=== PATIENT | female | born 1950 | race Caucasian/White ===

== ENCOUNTER 2017-01-07 17:06 | Inpatient (IN) | payer MEDICARE ==
[~2017-01-07] VITALS: Ht 162.6 cm; Wt 89.6 kg
[~2017-01-07 17:06] MED LIST: BISAC-EVAC10 MG PR; CELEXA20 MG PO; DELTASONE DPS20 MG PO; DUONEB DPS3 ML IH; INDERAL LA60 MG PO; LOMOTIL-DPS1 TAB PO; MIRALAX17 GM PO; MYLANTA PO; NEPHRO-VITE1 TAB PO; NITROSTAT0.4 MG SL; OMNICEF DPS300 MG PO; PEPCID DPS20 MG PO; PEPCID20 MG PO; PHOS-LO667 MG PO; PRO-STAT AWC LI30 ML PO; PROTONIX40 MG PO; RENAGEL800 MG PO; RENVELA800 MG PO; ROBITUSSIN100 MG/5 M PO; RULOX PO; SENSIPAR30 MG PO; SENSIPAR90 MG PO; SPIRIVA18 MCG IH; SURFAK240 MG PO; TYLENOL DPS325 MG PO; TYLENOL EXTRA500 M1 PO; XANAX DPS0.5 MG PO; ZOFRAN4 M1 PO
--- NOTE | 2017-01-08 10:30 | CO ---
ADMIT: 01/07/2017 RM/LOC: 307 [facility] MR#: [id number] [address] [place], [place] [address] CRIS [address] [address] Consultation SEX: F AGE: 66 : 1950 DATE OF CONSULTATION: 01/07/2017 ATTENDING PHYSICIAN: Warren Baez CONSULTING PHYSICIAN: Gato Reed MD REASON FOR CONSULTATION: End-stage renal disease, on hemodialysis, hyperkalemia. HISTORY OF PRESENT ILLNESS: The patient is a 66-year-old female, who is well known to me. She typically dialyzes on a Ciuinc-Esqglboli-Xorpxs schedule. Her last dialysis was this past Sunday. She has been unwell for approximately 2-3 weeks now. Has been having a productive cough with some shortness of breath. We had treated her as an outpatient with Levaquin and oral steroids for her COPD exacerbation. Her expectoration did decrease somewhat, but earlier today, she had sudden onset of shortness of breath, for which she presented to the emergency room. She was being treated for her COPD exacerbation and was noted to have a potassium of 7.6. She denies any dietary potassium indiscretion. She is adamant she did not have any high potassium food such as potatoes, tomatoes, or strawberries or fruits, etc. Other than the shortness of breath, she notes some tingling in her feet. She denies any orthopnea or PND. She is currently on 2 L nasal cannula for supplemental oxygen. She has no other complaints. REVIEW OF SYSTEMS: A complete review of systems is negative in detail except as mentioned in the history of present illness above. PAST MEDICAL HISTORY: 1. Hypertension. 2. 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 Her dialysis schedule is Knrlpk-Qkhtlhtml-Zbrirq. Access right upper arm AV fistula. 3. COPD. 4. Hysterectomy. 5. Cholecystectomy. 6. Peptic ulcer disease. 7. Chronic headaches. 8. Anemia of chronic kidney disease. 9. Staph epi bacteremia associated with the catheter in 2011. 10.Noncardiac chest pain previously. 11.Renal insufficiency secondary to prednisone therapy. 12.Pulmonary embolism in 2011. 13.Anxiety disorder. 14.Right arm AV fistula in January 2013. MEDICATIONS: Reading her home medication list, she is on no antihypertensives at home. She was taking Levaquin as an outpatient along with prednisone that she recently finished. ADMIT: 01/07/2017 RM/LOC: 307 [facility] MR#: [id number] [address] [address] [place] [address] Consultation SEX: F AGE: 66 : 1950 FAMILY HISTORY: No family history of chronic kidney disease or renal replacement therapy. SOCIAL HISTORY: Quit smoking in the year 2011. Denies any alcohol or recreational drug use. ALLERGIES: ASPIRIN, PENICILLINS. PHYSICAL EXAMINATION: VITAL SIGNS: Blood pressure 168/85, heart rate 84, saturating 95% on 2 L nasal cannula. GENERAL: She is in bed, somewhat tachypneic. HEENT: Head is nontraumatic and normocephalic. Extraocular movements are intact. No conjunctival pallor. Oral mucosa is moist. NECK: Supple without any JVD. CHEST: With expiratory wheezes. CVS: Regular rhythm. S1, S2 heard. No rubs, murmurs, or gallops. ABDOMEN: Soft, nontender. EXTREMITIES: No edema. SKIN: No rash or nodules. NEUROLOGIC: Alert, awake, and oriented x3. She is able to move all extremities. PSYCHIATRIC: Affect and memory within normal limits. MUSCULOSKELETAL: Major joints within normal limits. Range of motion within normal limits. Line access right upper arm AV fistula, good thrill and bruit. LABORATORY DATA: Reviewed. BMP with sodium 132, potassium 7.6, CO2 is 23, creatinine 10.4, hemoglobin is 12.8, white count 16.2. IMAGING: Chest x-ray without any pulmonary edema or infiltrates. ASSESSMENT: 1. End-stage renal disease, on hemodialysis. 2. Chronic obstructive pulmonary disease exacerbation. 3. Hyperkalemia. 4. Hypertension/volume expansion. ADMIT: 01/07/2017 RM/LOC: 307 [facility] MR#: [id number] [address] [address] [address] [place] [address] Consultation SEX: F AGE: 66 : 1950 5. Hyponatremia. PLAN: I will provide her urgent hemodialysis tonight. I will dialyze her on a 2K bath. Her hyperkalemia and her volume expanded state necessitates dialysis. For her chronic obstructive pulmonary disease exacerbation, she will be treated with doxycycline and DuoNeb for the time being. She will be on telemetry for hyperkalemia as well. She will likely need renal replacement therapy tomorrow too. Thank you for this consultation and allowing me the opportunity to participate in this patient's care. Please do not hesitate to contact with any questions. Gato Reed MD/ rosendo JOB #: [id number] CC: Warren Baez, Attending Physician Warren Baez, Family Physician
--- NOTE | 2017-01-08 13:01 | ER ---
ADMIT: 01/07/2017 RM/LOC: 307 [facility] MR#: [id number] [address] [place], [place] [address] CRIS [address] [address] Emergency Room Report SEX: F AGE: 66 : 1950 DATE: 01/07/2017 The patient is a 66-year-old female with a past medical history of hypertension; COPD; end-stage kidney disease, on dialysis on Sunday, Sunday, and Sunday who had dialysis on the last Sunday, 2 days ago, came to the ER with chief complaint of increased shortness of breath. The patient recently has been hospitalized for COPD exacerbation and hyperkalemia and after counting the medications prednisone and levofloxacin pills and talking to the family, it looks like the patient is not compliant with her medications. The patient denies any chest pain. In the ER, the patient had O2 saturation of 92% at room air, which increased to 94% on minimal 1 to 2 L of nasal cannula O2 oxygen. EKG did not show any ST or T changes and did not show any arrhythmia, is normal sinus rhythm. Cardiac enzymes are pending. The patient had bilateral wheezing. The patient received Solu-Medrol IVs 125 mg in the ER. The patient was started on DuoNeb and albuterol nebulizer. Physical exam did not show any other abnormalities. Followup lab works were positive for hyperkalemia at 7.6, severe hyperkalemia. The patient received calcium gluconate 10 mL IV or more than 5 minutes. The patient also received multiple albuterol nebulizer and received 1 vial 50 mL of dextrose 50% with 5 units of regular insulin IV. Internal Medicine, Dr. Soto, and Nephrology, Dr. Reed were consulted. The patient was admitted for further followups and treatments of COPD exacerbation, hyperkalemia. Milli Miller MD/ rosendo JOB #: [id number] CC: Warren Baez DO, Attending Physician Warren Baez DO, Family Physician
[2017-01-11] MEDS ORDERED: PHOS-LO667 MG PO (13:18)
[2017-01-11] MEDS ORDERED: PRILOSEC DPS20 MG PO (13:19)
[2017-01-11] MEDS ORDERED: XANAX DPS0.5 MG PO (13:20)
[2017-01-11] MEDS ORDERED: HABITROL DPS21 MG TD (13:21)
[2017-01-11] MEDS ORDERED: ZITHROMAX250 MG PO (13:22)
[2017-01-11] MEDS ORDERED: ROBITUSSIN AC D30 ML PO (13:23)
[2017-02-15] MEDS ORDERED: SURFAK DPS240 MG PO (13:08)
[2017-02-15] MEDS ORDERED: SENSIPAR90 MG PO (13:08)
[2017-02-15] MEDS ORDERED: TYLENOL DPS325 MG PO (13:09)
[2017-02-15] MEDS ORDERED: NITROSTAT0.4 MG SL (13:09)
--- NOTE | 2017-02-28 08:23 | DS ---
ADMIT: 01/07/2017 RM/LOC: 307 [facility] MR#: [id number] 2620 [facility] [address] [place], [place] [address] CRIS MANCILLA [address] [address] Discharge Summary SEX: F AGE: 66 : 1950 ADMISSION DATE: 01/07/2017 DISCHARGE DATE: 01/10/2017 HISTORY OF PRESENT ILLNESS: The patient was admitted and received her initial assessment and care plan per Dr. Soto. Please refer to her orders and admission history and physical. In short, she was felt to have exacerbation of COPD. She has end-stage renal disease, and Dr. Reed was consulted. He provided her ongoing dialysis services. The patient received IV steroids, IV antibiotics, nebulized treatments. She admitted that she was since returning home to the care of her family, she had restarted her smoking habit. We discussed this in detail and she was agreeable to smoking cessation. On 01/09, we switched her from IV Solu-Medrol to oral prednisone after noting she had improved lung sounds and was reporting that she was better. By 01/10, she had resolved her exacerbation of COPD. We had discussed smoking cessation and decided to dismiss her with plans to return to see me in 2 weeks. She was to stay on doxycycline 100 mg p.o. b.i.d. for 1 week and then have a tapering course of prednisone 20 mg daily for 5 days, 10 mg daily for 5 days, and stop. She was to receive her routine follow up through the outpatient dialysis clinic and monitoring per Dr. Reed. FINAL DIAGNOSES: 1. Acute exacerbation Chronic obstructive pulmonary disease. 2. End-stage renal disease. 3. Hypertension. 4. Hyperkalemia. Warren Baez DO/ modl JOB #: [id number] CC: Warren Baez DO, Attending Physician Warren Baez DO, Family Physician
== END 2017-01-10 16:10 | disposition home or self-care (01) | DRG 190 ==
LOC: ER 17:06 → 3ICU 18:45
PROVIDERS: ADMIT Internal Medicine Nephrology
PROC: 5A1D60Z (ICD-10-PCS; principal; 2017-01-07)
DX: J44.1 Chronic obstructive pulmonary disease with (acute) exacerbation (principal); N18.6 End stage renal disease; I12.0 Hypertensive chronic kidney disease with stage 5 chronic kidney disease or end stage renal disease; E87.1 Hypo-osmolality and hyponatremia; E87.5 Hyperkalemia; F41.9 Anxiety disorder, unspecified; D63.1 Anemia in chronic kidney disease; Z99.2 Dependence on renal dialysis; Z91.14 Patient's other noncompliance with medication regimen; Z86.711 Personal history of pulmonary embolism; Z87.891 Personal history of nicotine dependence; Z87.11 Personal history of peptic ulcer disease; Z66 Do not resuscitate

== ENCOUNTER 2017-02-08 14:51 | Emergency (ER) | payer MEDICARE ==
[~2017-02-08 14:51] MED LIST changes: +HABITROL DPS21 MG TD; +PRILOSEC DPS20 MG PO; +ROBITUSSIN AC D30 ML PO; +ZITHROMAX250 MG PO
[2017-02-15] MEDS ORDERED: SENSIPAR90 MG PO (13:08)
[2017-02-15] MEDS ORDERED: SURFAK DPS240 MG PO (13:08)
[2017-02-15] MEDS ORDERED: TYLENOL DPS325 MG PO (13:09)
[2017-02-15] MEDS ORDERED: NITROSTAT0.4 MG SL (13:09)
--- NOTE | 2017-02-17 06:57 | ER ---
ADMIT: 02/08/2017 RM/LOC: ER [facility] MR#: [id number] [address] [place], [place] [address] CRIS MANCILLA [address] [address] Emergency Room Report SEX: F AGE: 66 : 1950 DATE: 02/08/2017 See T-sheet for complete H and P, ADDENDUM: A 66-year-old female presents complaining of right upper extremity pain that extends into her axilla and just the anterior part of her right chest. She does have a fistula on this side for end-stage renal disease, and she has been using that fistula for over 4 years. She does get dialysis on Sunday, Sunday, and Sunday. Last dialysis was yesterday morning. She developed some pain approximately 12 hours after dialysis was done in that right upper arm and she thinks that she has a little bit of bruising there. It is quite tender to palpation. She denies any new shortness of breath. No difficulty breathing. There is some tenderness when she moves that right arm. She has not had any recent falls. She denies fevers, chills, nausea, or vomiting. On examination, she has some tenderness in this area. Fistula has a good bruit. I see no swelling, no signs of erythema or infection. I did get an ultrasound which is negative for DVT and the basilic vein fistula appears patent. There is no swelling or gas seen on the ultrasound. The patient was given Ultram here, discharged home to follow up tomorrow in dialysis and she is told she can return for any other concerning symptoms. DIAGNOSIS: Right arm pain. Tae Gamble MD/ rosendo JOB #: [id number] CC: Tae Gamble MD, Attending Physician
== END 2017-02-08 16:59 | disposition home or self-care (01) ==
LOC: ER 14:51
DX: M79.601 Pain in right arm (principal); Z88.0 Allergy status to penicillin; Z88.8 Allergy status to other drugs, medicaments and biological substances; Z87.891 Personal history of nicotine dependence

== ENCOUNTER 2017-02-09 11:46 | Emergency (ER) | payer MEDICARE ==
--- NOTE | 2017-02-10 08:22 | ER ---
ADMIT: 02/09/2017 RM/LOC: ER [facility] MR#: [id number] [address] [place], [place] [address] CRIS [address] [address] Emergency Room Report SEX: F AGE: 66 : 1950 DATE: 02/09/2017 A 66-year-old female, comes again to the Emergency Department with complaints of right-sided chest pain. Please note, she changed her complaints much later in the ER visit to the same pain she was having last night, she says it is in the posterior aspect of the right arm, radiates into the right side of the chest with movement of the arm. Her CBC showed a white count of 12.3. Chest x-ray was unremarkable. Electrolytes pending at the time of this dictation. The patient did dialyze today. Her diagnosis is arm pain. She was given fentanyl in the Emergency Department. Instructed to continue to use her Ultram that was prescribed yesterday and a heating pad to the area. Follow up this week with her doctor. Tejas Tamayo MD/ rosendo JOB #: [id number] CC: Tejas Tamayo MD, Attending Physician Ashwin Elizondo MD, Family Physician
[2017-02-15] MEDS ORDERED: SURFAK DPS240 MG PO (13:08)
[2017-02-15] MEDS ORDERED: SENSIPAR90 MG PO (13:08)
[2017-02-15] MEDS ORDERED: TYLENOL DPS325 MG PO (13:09)
[2017-02-15] MEDS ORDERED: NITROSTAT0.4 MG SL (13:09)
== END 2017-02-09 15:11 | disposition home or self-care (01) ==
LOC: ER 11:46
DX: M79.601 Pain in right arm (principal); R07.9 Chest pain, unspecified; Z88.0 Allergy status to penicillin; Z88.6 Allergy status to analgesic agent; Z87.891 Personal history of nicotine dependence; Z90.710 Acquired absence of both cervix and uterus; Z90.89 Acquired absence of other organs

== ENCOUNTER 2017-02-11 18:15 | Inpatient (IN) | payer MEDICARE ==
[~2017-02-11] VITALS: Ht 162.6 cm; Wt 90.6 kg
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
[2017-02-15] MEDS ORDERED: SENSIPAR90 MG PO (13:08)
[2017-02-15] MEDS ORDERED: SURFAK DPS240 MG PO (13:08)
[2017-02-15] MEDS ORDERED: NITROSTAT0.4 MG SL (13:09)
[2017-02-15] MEDS ORDERED: TYLENOL DPS325 MG PO (13:09)
--- NOTE | 2017-02-16 16:04 | CO ---
ADMIT: 02/11/2017 RM/LOC: 410 [facility] MR#: [id number] [address] [place], [place] [address] CRIS [address]LL[address] [address] Consultation SEX: F AGE: 66 : 1950 DATE OF CONSULTATION: 02/12/2017 ATTENDING PHYSICIAN: Warren Baez CONSULTING PHYSICIAN: Gato Reed MD REASON FOR CONSULTATION: End-stage renal disease, on hemodialysis. HISTORY OF PRESENT ILLNESS: The patient is a 66-year-old female, who dialyzes on a Ktyprt-Qsopnclas-Ayhxfr schedule. Last dialysis was this past Sunday. She presented to the hospital yesterday with chief complaint of shortness of breath, chest discomfort, chills, as well as anxiety. She was recently hospitalized for a COPD exacerbation. She had not been better, but continued to have a cough. Over the weekend, she felt worse. She started having a productive cough. She had subjective chills, but no documented fevers. She was admitted and evaluated through the ER. She is being treated for a COPD exacerbation. At the time of this encounter, she continues to have some dyspnea. Denies any orthopnea or PND. Denies any lower extremity edema. Denies any dietary sodium or fluid indiscretion. REVIEW OF SYSTEMS: A complete review of systems is negative in detail except as mentioned in history of present illness above. PAST MEDICAL HISTORY: 1. Hypertension. 2. 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 Dialysis scheduled as Sunday, Sunday, and Sunday. Access, right upper arm AV fistula. 3. COPD. 4. Hysterectomy. 5. Peptic ulcer disease. 6. Cholecystectomy. 7. Chronic headaches. 8. Anemia of chronic kidney disease. 9. Staph epidermidis bacteremia, associated with a catheter in the year 2011. 10.Noncardiac chest pain previously. 11.Adrenal insufficiency secondary to prednisone therapy. 12.Pulmonary embolism in 2011. 13.Anxiety disorder. 14.Right arm AV fistula in January of 2013. MEDICATIONS: Reviewed in the chart. FAMILY HISTORY: No family history of chronic kidney disease or renal replacement therapy. ADMIT: 02/11/2017 RM/LOC: 410 [facility] MR#: [id number] [address] [address] MANCILL[address] [place] [address] Consultation SEX: F AGE: 66 : 1950 SOCIAL HISTORY: She quit smoking in the year 2011. No ongoing tobacco, alcohol, or recreational drug use. ALLERGIES: ASPIRIN AND PENICILLIN. PHYSICAL EXAMINATION: VITAL SIGNS: Temperature 98 Fahrenheit, pulse 75, blood pressure 138/72. GENERAL: She is comfortable in her bed. HEENT: Head is nontraumatic and normocephalic. Extraocular movements are intact. No conjunctival pallor. Dry mucosa. NECK: Supple without any JVD. CHEST: Clear to auscultation. CVS: Regular rate and rhythm. S1, S2 heard. No rubs, murmurs, or gallops. ABDOMEN: Soft, nontender. EXTREMITIES: No edema. SKIN: No rash or nodules. NEUROLOGIC: Alert, awake, and oriented x3. She is able to move all her extremities. PSYCHIATRIC: She is somewhat anxious. ACCESS: Right upper arm AV fistula, with good thrill and bruit. LABORATORY DATA: Reviewed. BMP with sodium 134, potassium 4.9, CO2 of 24, creatinine 9.9, calcium 7.5, phosphorus 4.5. Hemoglobin is 11.3. ASSESSMENT AND PLAN: 1. End-stage renal disease, on hemodialysis - Plan to dialyze today. See orders in the chart. 2. Hypertension - Blood pressure is acceptable. I will provide her ultrafiltration as her hemodynamics allow. 3. Anemia in chronic kidney disease - Hemoglobin is at goal of 10 g/dL or higher. Continue to monitor. 4. Renal osteodystrophy - Continue Renvela and PhosLo as her phosphate binders. Serum phosphorus is within normal limit. Thank you for this consultation. Please do not hesitate to contact me with any questions. Gato Reed MD/ rosendo JOB #: [id number] CC: Warren Baez, Attending Physician Warren Baez, Family Physician
--- NOTE | 2017-02-28 08:23 | HP ---
ADMIT: 02/11/2017 RM/LOC: 410 MR#: [id number] 26[address] [facility] [address] [place], [place] [address] CRIS MANCILLA [address] [address] History and Physical SEX: F AGE: 66 : 1950 DATE OF SERVICE: 02/12/2017 REASON FOR HOSPITALIZATION: Chest discomfort, shaking, chills, and anxiety. HISTORY OF PRESENT ILLNESS: A 66-year-old female patient, who had sudden onset of chest discomfort, chills, and shaking and thought suspicious for early pneumonia and/or pulmonary embolism. At the time of presentation in the emergency room, it was noted by the staff that she was quite anxious. After further evaluation, there was no obvious pulmonary embolism or infiltrate on her CT scan of her chest, but she is admitted for possible early pneumonia and acute exacerbation of chronic obstructive pulmonary disease. PAST MEDICAL HISTORY: 1. She does have a history of COPD. 2. End-stage renal disease, on hemodialysis. 3. Hypertension. 4. Anemia. 5. Pulmonary embolism. 6. Peptic ulcer disease. 7. Anxiety. SOCIAL HISTORY: She reports that she has successfully quit smoking but "it is very hard." Those around her in her home continue to smoke. FAMILY HISTORY: Noncontributory. MEDICATIONS: Home medications are not yet listed in her record but will be reviewed. REVIEW OF SYSTEMS: The discomfort as reported above in her chest. No current nausea, vomiting, diarrhea, or bleeding. She does dialyze on Sunday, Sunday, and Sunday. PHYSICAL EXAMINATION: GENERAL: On examination, she is pleasant, currently pain free. She does have a cough. She is complaining of right axillary discomfort. She states she thinks she pulled some tendons in the axilla. She did have an ultrasound of this area performed about 4 or 5 days ago which was negative for clot. LUNGS: Otherwise, her lungs are revealing rhonchi especially in the left base. HEART: Regular. ADMIT: 02/11/2017 RM/LOC: 410 MR#: [id number] [id number] [place], [place] [address] CRIS MANCILLA [address] [place] [address] History and Physical SEX: F AGE: 66 : 1950 ABDOMEN: Soft. No peripheral edema. LABORATORY DATA: Her labs reveal negative CK-MB and troponins. CTA is negative for pulmonary embolism. IMPRESSION: 1. Acute exacerbation of chronic obstructive pulmonary disease. 2. Anxiety. 3. Right arm pain. PLAN: Admit, antibiotic therapy, nebulized treatments. Consult Dr. Reed and repeat ultrasound of the right upper extremity. Warren Baez DO/ modl JOB #: [id number] CC: Warren Baez, Attending Physician Warren Baez, Family Physician
--- NOTE | 2017-03-06 21:31 | ER ---
ADMIT: 02/11/2017 RM/LOC: ER [facility] MR#: [id number] [address] [place], [place] [address] CRIS [address]CILLA [address] [address] Emergency Room Report SEX: F AGE: 66 : 1950 DATE: 02/11/2017 This 66-year-old female with sudden onset of sharp chest pain, 9/10 while watching TV, but then shaking uncontrollably, back pain and leg pain. PAST HISTORY: Hypertension, dialysis-dependent renal failure, anxiety and was recently seen in the Emergency Department with right shoulder pain. PHYSICAL EXAM: Reveals a very-anxious appearing female who then started shaking, but I do not think she has episodes like this where she cannot control her shaking but they were noted to extinguish when she was talking to the nurses, only to return after she finished talking. Also of note that the daughter who is the POA states her mother frequently does this when she wants attention or complaining of pains and shaking. The daughter is concerned about her living arrangements and that she has a caregiver and lives 3 blocks away but works at night and the daughter appears obviously frazzled saying she is continually over her mother's house checking on her because her mother calls her with various complains. The daughter asked if she did some lab work be done, everything she is able to go home. The social worker clinical contact she and her mother about the care home or assisted living arrangements. PHYSICAL EXAM: GENERAL: This woman is anxious, dramatic. LUNGS: Clear to auscultation. CARDIOVASCULAR: Regular rate and rhythm. CHEST: Chest wall is tender to just light palpation. She screamed. ABDOMEN: Obese and soft. EXTREMITIES: There is a dialysis fistula on the right arm. It appears patent with good thrill. Extremities are unremarkable. I will be signing this patient over to Dr. Salas. Cardiac labs have been done and EKG is unremarkable. Chest x-ray will be done as well. Tejas Tamayo MD/ rosendo JOB #: [id number] CC: Tejas Tamayo MD, Attending Physician UNKNOWN, Family Physician
--- NOTE | 2017-03-21 08:20 | DS ---
ADMIT: 02/11/2017 RM/LOC: 410 [facility] MR#: [id number] [address] [place], [place] [address] CRIS MANCILLA [address] [address] General Discharge Summary SEX: F AGE: 66 : 1950 ADMISSION DATE: 02/11/2017 DISCHARGE DATE: 02/14/2017 REASON FOR HOSPITALIZATION: Shaking chills, anxiety, and chest discomfort. HISTORY OF PRESENT ILLNESS: This is a 66-year-old female patient, who had sudden onset of chest discomfort, chills, and shaking and this was thought to be suspicious for an early pneumonia and/or pulmonary embolism. She came to the emergency room. She was noted to be very anxious. After further evaluation, there was no finding of specific pulmonary embolism or infiltrate but she was admitted for further observation and assessment. She does have a longstanding history of COPD and we determined that she had acute exacerbation of her chronic COPD. She was placed on steroids, antibiotics, nebulized treatments, and observation. Dr. Reed was consulted to manage her dialysis- related concerns and fistula management. By 02/14, she was doing much better. Her lungs were clear and we decided to dismiss her back home. She was dismissed with. FINAL DIAGNOSES: Acute exacerbation chronic obstructive pulmonary disease, end-stage renal disease, anxiety, hypertension. She was to receive a tapering dose of prednisone, Xanax, and 5-day course of Zithromax. Warren Baez DO/ jagdeepl JOB #: [id number] CC: Warren Baez DO, Attending Physician Warren Baez DO, Family Physician
== END 2017-02-14 15:00 | disposition home or self-care (01) | DRG 190 ==
LOC: ER 18:15 → 4PCU 21:00
PROVIDERS: ADMIT Internal Medicine
PROC: 5A1D60Z (ICD-10-PCS; principal; 2017-02-12)
DX: J44.1 Chronic obstructive pulmonary disease with (acute) exacerbation (principal); N18.6 End stage renal disease; I12.0 Hypertensive chronic kidney disease with stage 5 chronic kidney disease or end stage renal disease; N25.0 Renal osteodystrophy; Z99.2 Dependence on renal dialysis; D63.1 Anemia in chronic kidney disease; F42.9 Obsessive-compulsive disorder, unspecified; F41.9 Anxiety disorder, unspecified; Z86.711 Personal history of pulmonary embolism; Z87.11 Personal history of peptic ulcer disease; Z87.891 Personal history of nicotine dependence; Z66 Do not resuscitate

== ENCOUNTER 2017-04-01 18:06 | Inpatient (IN) | payer MEDICARE ==
[~2017-04-01] VITALS: Ht 162.6 cm; Wt 86.8 kg
[~2017-04-01 18:06] MED LIST changes: +SURFAK DPS240 MG PO
--- NOTE | 2017-04-05 08:00 | HP ---
ADMIT: 04/01/2017 RM/LOC: 410 [facility] MR#: [id number] [address] [place], [place] [address] CRIS MANCILLA [address] [address] History and Physical SEX: F AGE: 66 : 1950 DATE OF SERVICE: 04/02/2017 REASON FOR HOSPITALIZATION: Exacerbation of chronic obstructive pulmonary disease. HISTORY: Cris is a 66-year-old female patient with end-stage renal disease, who smokes a half a pack a day. She presented reporting increased shortness of breath, general weakness, and fatigue. She is evaluated and felt to have acute exacerbation of COPD. Now, admitted for antibiotic and support, history of COPD, end-stage renal disease, on hemodialysis, hypertension, anemia, pulmonary embolism, peptic ulcer disease, and anxiety. SOCIAL HISTORY: Smokes half pack a day. Had done very well during a time when she was staying in a [facility] alongside with her , who is now . Since being dismissed home to family, she has resumed her smoking habit and poor health decisions. FAMILY HISTORY: Noncontributory. REVIEW OF SYSTEMS: She denies any sputum. She reports general fatigue and malaise. She is not having any chest pain, edema, nausea, vomiting, or bleeding. PHYSICAL EXAMINATION: VITAL SIGNS: She is afebrile. Blood pressure 144/67. HEART: Regular. PULMONARY: Rhonchi. No edema. ABDOMEN: Soft. LABORATORY DATA: BUN 46, creatinine 10.6, hemoglobin 12.2, and white count 9.3. Chest x-ray, cardiomegaly. IMPRESSION: Acute exacerbation of chronic obstructive pulmonary disease with underlying end-stage renal disease and hypertension. PLAN: Admit, IV antibiotic therapy, steroids, nebulized treatment, and Nephrology consult. Warren Baez DO/ modl JOB #: [id number] CC: Warren Baez, Attending Physician Warren Baez, Family Physician
--- NOTE | 2017-04-05 11:50 | CO ---
ADMIT: 04/01/2017 RM/LOC: [address] [facility] MR#: [id number] [address] [place], [place] [address] CRIS MANCILLA [address] [address] Consultation SEX: F AGE: 66 : 1950 DATE OF CONSULTATION: 04/02/2017 ATTENDING PHYSICIAN: Warren Baez CONSULTING PHYSICIAN: Gato Reed MD REASON FOR CONSULTATION: End-stage renal disease, on hemodialysis and hyperkalemia. HISTORY OF PRESENT ILLNESS: The patient is a 66-year-old female, who typically dialyzes on Sunday, Sunday, and Sunday schedule. Her last dialysis was this past Sunday. She presented to the emergency room yesterday with a chief complaint of shortness of breath that started yesterday afternoon. She continues to smoke cigarettes on a daily basis. She has a history of COPD as well. She notes that she may have had a low-grade fever, although, chest x-ray did not show any evidence of conclusive pneumonia, has been having cough with some sputum production, which is yellowish. No orthopnea or PND. Denies any lower extremity edema. She does not make much urine. Denies any other focal complaints. REVIEW OF SYSTEMS: A complete review of systems is negative in detail except as mentioned in history of present illness above. PAST MEDICAL HISTORY: 1. Hypertension. 2. 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 3. Right upper arm AV fistula. 4. COPD. 5. Hysterectomy. 6. Peptic ulcer disease. 7. Cholecystectomy. 8. Chronic headaches. 9. Anemia of chronic kidney disease. 10.Staph epidermidis bacteremia, associated with a catheter in the year 2011. 11.Noncardiac chest pain previously. 12.Adrenal insufficiency secondary to prednisone therapy. 13.Pulmonary embolism. 14.Anxiety disorder. MEDICATIONS: Reviewed in the chart. FAMILY HISTORY: No family history of chronic kidney disease or renal replacement therapy. SOCIAL HISTORY: Continues to smoke cigarettes on a daily basis. No ongoing alcohol or recreational drug use. ADMIT: 04/01/2017 RM/LOC: [address] [facility] MR#: [id number] [address] [place], [place] [address] CRIS MANCILLA [address] [address] Consultation SEX: F AGE: 66 : 1950 ALLERGIES: ASPIRIN AND PENICILLIN. PHYSICAL EXAMINATION: VITAL SIGNS: Temperature 96.8 Fahrenheit, pulse 75, blood pressure 144/67, and saturating 97% on room air. GENERAL: She is comfortable in her bed. HEENT: Head is nontraumatic and normocephalic. Extraocular movements are intact. No conjunctival pallor. Dry mucosa. CHEST: With wheezes all over. CVS: Regular rhythm. S1 and S2 heard. No rubs, murmurs, or gallops. ABDOMEN: Soft and nontender. EXTREMITIES: No edema. SKIN: No rash or nodules. NEUROLOGIC: Alert, awake, and oriented x3. She is able to move all extremities. MUSCULOSKELETAL: Major joints within normal. Range of motion within normal limits. PSYCHIATRIC: She is anxious. ACCESS: Right upper arm AV fistula, with good thrill and bruit. LABORATORY DATA: Reviewed. BMP with sodium 135, potassium 6.2, creatinine 10.6. CO2 of 25, hemoglobin 12.2, white count 9.3, and albumin 3.1. Chest x-ray without any acute cardiopulmonary process. ASSESSMENT AND PLAN: 1. End-stage renal disease, on hemodialysis. 2. Hyperkalemia. 3. Hypertension. I discussed smoking cessation as well as dietary potassium restriction with her. I will plan to dialyze her today. Orders have been placed in the chart. As far as her antibiotics are concerned, I will defer this to Dr. Baez. Thank you for this consultation. Please do not hesitate to contact with any questions. Gato Reed MD/ rosendo JOB #: [id number] CC: Warren Baez, Attending Physician Warren Baez, Family Physician
--- NOTE | 2017-05-06 15:42 | ER ---
ADMIT: 04/01/2017 RM/LOC: 410 [facility] MR#: [id number] [id number] [place], [place] [address] CRIS MANCILLA [address] [address] Emergency Room Report SEX: F AGE: 66 : 1950 DATE: 04/01/2017 ADDENDUM: CHIEF COMPLAINT: Shortness of breath. HISTORY OF PRESENT ILLNESS: This is a 66-year-old who has a history of COPD, has been short of breath for the last 16 hours. OVERALL FINDINGS: The patient was admitted for right-sided pneumonia, elevated liver function tests. I did speak with Dr. Soto regarding the patient, she admitted to the floor. Antibiotics were started down here after blood cultures were drawn. EMERALD Morrissey / Tejas Tamayo MD / rosendo JOB #: [id number] CC: Warren Baez DO, Attending Physician Warren Baez DO, Family Physician
--- NOTE | 2017-05-17 08:13 | DS ---
ADMIT: 04/01/2017 RM/LOC: [address] [facility] MR#: [id number] [address] [place], [place] [address] CRIS MANCILLA [address] [address] Discharge Summary SEX: F AGE: 66 : 1950 ADMISSION DATE: 04/01/2017 DISCHARGE DATE: 04/05/2017 REASON FOR HOSPITALIZATION: Acute exacerbation of COPD. HISTORY: This 66-year-old female patient with end-stage renal disease and COPD, continues to smoke and developed weakness and shortness of breath. At the time of presentation, she had rhonchi in both lung ayoub and a regular heart. Blood pressure 144/67. BUN 46, creatinine 10.6. Hemoglobin of 12.2. Chest x-ray showed cardiomegaly. HOSPITAL COURSE: She was admitted to the hospital, was given instructions regarding smoking cessation. Dr. Reed was consulted and managed her dialysis followup. She is given DuoNeb, Solu-Medrol, and respiratory cares along with IV antibiotic therapy. By the , she was improved, but still producing sputum and having some faint wheezes. I did decrease her Solu- Medrol. She was responsive and on 04/04, I stopped Solu-Medrol and put her on prednisone orally. She did receive dialysis through her hospital course and on the was capable of dismissal home. FINAL DIAGNOSES: 1. Acute exacerbation of chronic obstructive pulmonary disease. 2. End-stage renal disease. 3. Hypertension. 4. Ongoing tobacco abuse. She was placed on a tapering dose of prednisone and was to return to see me in 2 weeks. Warren Baez DO/ rosendo JOB #: [id number] CC: Warren Baez DO, Attending Physician Warren Baez DO, Family Physician
== END 2017-04-05 10:35 | disposition home or self-care (01) | DRG 190 ==
LOC: ER 18:06 → 4PCU 20:10
PROVIDERS: ADMIT Internal Medicine
PROC: 5A1D60Z (ICD-10-PCS; principal; 2017-04-02)
DX: J44.1 Chronic obstructive pulmonary disease with (acute) exacerbation (principal); N18.6 End stage renal disease; I12.0 Hypertensive chronic kidney disease with stage 5 chronic kidney disease or end stage renal disease; E27.3 Drug-induced adrenocortical insufficiency; F17.210 Nicotine dependence, cigarettes, uncomplicated; E87.5 Hyperkalemia; T38.0X5A Adverse effect of glucocorticoids and synthetic analogues, initial encounter; D63.1 Anemia in chronic kidney disease; F41.9 Anxiety disorder, unspecified; Z99.2 Dependence on renal dialysis; Z86.711 Personal history of pulmonary embolism; Z87.11 Personal history of peptic ulcer disease